=== PATIENT | male | born 1960 | race Caucasian/White ===

== ENCOUNTER 2017-01-01 18:19 | Emergency (ER) | payer OTHER ==
[~2017-01-01] VITALS: Ht 160 cm; Wt 78.0 kg
[2017-01-01 18:20] VITALS: Ht 160 cm; Wt 78.0 kg
[2017-01-01] MEDS ORDERED: GEMF600T60 PO (18:37)
[2017-01-01] MEDS ORDERED: TRAM50TA2 PO (18:43)
[2017-01-01] MEDS ORDERED: GLIP-95 PO (18:43)
[2017-01-01] MEDS ORDERED: ATEN100T PO (18:43)
--- NOTE | 2017-01-01 18:58 | ERD ---
ER Documentation Chief Complaint Date/Time DATE: 01/01/17 TIME: 18:55 Chief Complaint refill of meds, for htn,dm, asmptomatic, out of meds x 4 mos HPI This is a 56-year-old male presents emergency department for medication refills. Patient states due to insurance concerns he has been unable to see his primary care provider and has been out of his medications for the past 4 months. Patient has been taking gemfibrozil 600 mg twice a day, glipizide 10 mg twice a day, atenolol 100 mg once daily and tramadol 50 mg every 6 hours as needed for pain. Patient states he has an appointment with his primary care provider on 01/13/2017. Denies chest pain, shortness breath, difficult to breathing, headache, polydipsia, polyuria, dizziness, weakness, abdominal pain, nausea, vomiting, dysuria, hematuria, or fevers. ROS All systems reviewed and are negative except as per history of present illness. Medications Home Meds Active Scripts Tramadol HCl (Tramadol HCl) 50 Mg Tablet, 50 MG PO Q4 Y for PAIN, #10 TAB Prov:POLA BATRES NP 01/01/17 Atenolol* (Atenolol*) 100 Mg Tablet, 100 MG PO DAILY, #30 TAB Prov:POLA BATRES NP 01/01/17 Glipizide* (Glipizide*) 10 Mg Tablet, 10 MG PO BID, #60 TAB Prov:POLA BATRES NP 01/01/17 Gemfibrozil* (Gemfibrozil*) 600 Mg Tablet, 600 MG PO BID, #60 TAB Prov:POLA BATRES NP 01/01/17 PMhx/Soc Type 2 diabetes mellitus Hypertension Physical Exam Vitals Vital Signs Date Time Temp Pulse Resp B/P Pulse Ox O2 Delivery O2 Flow Rate FiO2 01/01/17 18:20 98.1 97 20 174/110 99 Physical Exam Const: Alert, oriented to person place and time. Well-appearing nontoxic appearing. Head: Atraumatic Eyes: Normal Conjunctiva ENT: Normal External Ears, Nose and Mouth. Neck: Full range of motion..~ No meningismus. Resp: Clear to auscultation bilaterally Cardio: Regular rate and rhythm, no murmurs Abd: Soft, non tender, non distended. Normal bowel sounds Skin: No petechiae or rashes Back: No midline or flank tenderness Ext: No cyanosis, or edema Neur: Awake and alert Psych: Normal Mood and Affect Procedures/MDM MDM: 56-year-old male presents to the ED for medication refills for gemfibrozil , glipizide, atenolol and tramadol. Patient is extremely well-appearing on physical exam. Physical exam is overall unremarkable. Patient has been out of his medications for the past 4 months. Upon arrival, patient has blood pressure 174/110 mmHg. Patient denies headache, weakness, facial droop or fatigue. Denies chest pain, shortness breath, difficult to breathing, wheezing or heart palpitation. His high blood pressure is likely due to patient being off his hypertensive medications. Denies polydipsia, polyuria, fever or chills. Consulted Dr. Singh regarding this patient and we agree that patient is appropriate for outpatient management with refill of his medications. Patient states he has an upcoming appointment with his primary care provider on 01/13/2017.6 Low suspicion for DKA, CVA, TIA or hypertensive crisis. Patient will be given prescription for gemfibrozil 600 mg #60, glipizide 10 mg # 60, atenolol 100 mg #30 and tramadol 50 mg #10. Instructed patient to follow- up with primary care provider at scheduled appointment. Return to ED for any high fever, chest pain, difficulty breathing, shortness breath, wheezing, vomiting, diarrhea, abdominal pain or any new or worsening symptoms. Patient verbalizes understanding. All questions answered at discharge. French translation use during this encounter. Departure Diagnosis: Primary Impression: Encounter for medication refill Condition: Stable Patient Instructions: Taking Medicine Safely [facility] Usted se bernardo hecho un examen mdico de control que le indica que no est en consuelo condicin que requiera tratamiento urgente en el Departamento de Emergencia. Un estudio ms profundo y el tratamiento de santos condicin pueden esperar sin ningn riesgo hasta que usted sea atendida/o en el consultorio de santos mdico o consuelo cl bowen. Es responsabilidad suya arreglar consuelo nereyda para el seguimiento del hudson. MANEJO DE CONDICIONES NO URGENTES EN EL FUTURO 1) Si usted tiene un mdico de atencin primaria: Usted debera llamar a santos mdico de atencin primaria antes de venir al departamento de emergencia. Despus de las horas de consultorio, santos doctor o santos asociado/a est disponible por telfono. El mdico o enfermero de sally en el servicio telefnico puede asesorarle por lore medio para atender el problema, o hudson contrario se puede programar consuelo nereyda. 2) Si usted no tiene un mdico de atencin primaria: Llame al mdico o clnica de referencia que aparece abajo sudeep las horas de consultorio para hacer consuelo nereyda para que le vean. CLINICAS: [facility] [phone] [facility] [phone] [facility] [phone] [facility] [phone] [place] [id number] [phone] [facility] [phone] [address] [facility]. [facility] () Usted se bernardo hecho un examen mdico de control que le indica que no est en consuelo condicin que requiera tratamiento urgente en el Departamento de Emergencia. Un estudio ms profundo y el tratamiento de santos condicin pueden esperar sin ningn riesgo hasta que usted sea atendida/o en el consultorio de santos mdico o consuelo cl bowen. Es responsabilidad suya arreglar consuelo nereyda para el seguimiento del hudson. MANEJO DE CONDICIONES NO URGENTES EN EL FUTURO 1) Si usted tiene un mdico de atencin primaria: Usted debera llamar a santos mdico de atencin primaria antes de venir al departamento de emergencia. Despus de las horas de consultorio, santos doctor o santos asociado/a est disponible por telfono. El mdico o enfermero de sally en el servicio telefnico puede asesorarle por lore medio para atender el problema, o hudson contrario se puede programar consuelo nereyda. 2) Si usted no tiene un mdico de atencin primaria: Llame al mdico o condado institucions de referencia que aparece abajo sudeep las horas de consultorio para hacer consuelo nereyda para que le vean. SI USTED NO PUEDE PAGAR PARA KYAW UN MEDICO puede ir a: [facility] [address] [place] [address] [facility] [address] [place] [address] [facility] [address] [place] [address] [facility] [address] [place], [place] [id number] Additional Instructions: Llame al doctor MAANA y francisco consuelo NEREYDA PARA DENTRO DE 2-3 ORTIZ.Dgale a la secretaria que nosotros le instruimos hacer esta nereyda.Avise o llame si santos condicin se empeora antes de la nereyda. Regresa aqui si peor o no mejor. Return to ED for any high fever, chest pain, difficulty breathing, shortness breath, wheezing, vomiting, diarrhea, abdominal pain or any new or worsening symptoms. POLA BATRES NP January 01, 2017 18:58
== END 2017-01-01 18:47 | disposition home or self-care (01) ==
LOC: E/R 18:19
DX: Z76.0 Encounter for issue of repeat prescription (principal); E11.9 Type 2 diabetes mellitus without complications; I10 Essential (primary) hypertension; Z79.84 Long term (current) use of oral hypoglycemic drugs
CPT/HCPCS: 99281